=== PATIENT | male | born 1990 | race Two or more races ===

== ENCOUNTER 2023-11-08 10:37 | Outpatient (REF) | payer MEDICAID, SELFPAY ==
[2023-11-08 14:46] LABS: TSH reflex Free T4 1.44 uIU/mL (0.32-4.0)
== END 2023-11-08 10:38 | disposition home or self-care (01) ==
LOC: HO.CHCLDS 10:37
PROVIDERS: Visit Provider Internal Medicine
DX: E03.9 Hypothyroidism, unspecified (principal)
CPT/HCPCS: 36415; 84443